=== PATIENT | female | born 1960 | race Caucasian/White ===

== ENCOUNTER 2022-06-15 10:56 | Outpatient (RCR) | payer BC, SELFPAY ==
--- NOTE | 2022-06-08 15:47 | ONC.NURNOTE ---
Authorization: User: Ceci Bacon Gurpreet Date: 03/14/22 10:17 Type: Eligibility Determination Note... Request received from [facility] for prior authorization of Prolia [id number]. Patient carries BC as primary insurance. Per [employer] no prior authorization is required for Prolia. Services are based on medical necessity. [id number]
[2022-06-15 11:55] LABS: Chloride* 102 mmol/L (96-114); Potassium* 4.2 mmol/L (3.6-5.1); Sodium* 139 mmol/L (135-149)
[2022-06-15 11:58] LABS: Creatinine* 0.6 mg/dL (0.5-1.5); Estimated Glomerular Filt Rate 103 ml/min
[2022-06-15 11:59] LABS: Blood Urea Nitrogen* 9 mg/dL (7-30); Calcium* 9.4 mg/dL (8.4-10.6); Carbon Dioxide* 29 mmol/L (20-32); Glucose* 121 mg/dL (60-115)
[2022-06-15] MEDS: DENOSUMAB 60 MG/ML SYRINGE SUBCUT (12:18)
== END 2022-12-12 23:59 | disposition home or self-care (01) ==
LOC: CCIC 10:56
PROVIDERS: PCP Internal Medicine; Referring Provider Internal Medicine; Visit Provider Internal Medicine Hematology & Oncology
DX: D05.11 Intraductal carcinoma in situ of right breast (principal); M85.80 Other specified disorders of bone density and structure, unspecified site
CPT/HCPCS: 36415; 80048; 96372; 99212; 99213; 99214; J0897

== ENCOUNTER 2022-07-19 14:44 | Outpatient (CLI) | payer BC, SELFPAY ==
[2022-07-19 12:15] LABS: Albumin* 4.8 g/dL (3.3-5.0)
[2022-07-19 12:16] LABS: Chloride* 101 mmol/L (96-114); Potassium* 4.2 mmol/L (3.6-5.1); Sodium* 137 mmol/L (135-149)
[2022-07-19 12:17] LABS: Creatinine Urine 189.1 mg/dL
[2022-07-19 12:18] LABS: Alkaline Phosphatase* 93 U/L (40-150); Aspartate Amino Transferase* 47 U/L (12-35); Bilirubin Total* 0.4 mg/dL (0.1-1.5); Blood Urea Nitrogen* 11 mg/dL (7-30); Carbon Dioxide* 26 mmol/L (20-32); Cholesterol* 213 mg/dL (90-199); Creatinine* 0.5 mg/dL (0.5-1.5); Estimated Glomerular Filt Rate 108 ml/min; Glucose* 121 mg/dL (60-115); Total Protein* 7.5 g/dL (6.0-8.3)
[2022-07-19 12:19] LABS: Alanine Aminotransferase* 38 U/L (4-35); Calcium* 8.8 mg/dL (8.4-10.6); HDL Cholesterol* 63 mg/dL (>=50); LDL Cholesterol Calculated 113 mg/dL (<100); Magnesium* 2.2 mg/dL (1.5-2.6); Triglycerides* 187 mg/dL (40-149)
[2022-07-19 12:21] LABS: Microalbumin Creatinine Ratio 10 mg/g (0-30); Microalbumin Urine 3 mg/dL
[2022-07-19 13:05] LABS: Vitamin B12* 610 pg/mL (243-894)
[2022-07-19 14:49] LABS: Ferritin* 9.5 ng/mL (11.1-264.0)
[2022-07-21 05:16] LABS: Folate, RBC 750 ng/mL (>=366); Hematocrit (client supplied) 41.3 %
[2022-07-21 08:56] LABS: Vitamin A (Retinol) 0.76 mg/L (0.30-1.20)
[2022-07-21 23:58] LABS: Copper, Serum/Plasma 138.9 ug/dL (80.0-155.0); Zinc, Serum/Plasma 83.3 ug/dL (60.0-120.0)
[2022-07-22 10:35] LABS: Vitamin K1 0.77 nmol/L (0.22-4.88)
== END 2022-07-19 14:45 | disposition home or self-care (01) ==
PROVIDERS: PCP Internal Medicine; Visit Provider Internal Medicine
DX: Z98.84 Bariatric surgery status (principal); E03.9 Hypothyroidism, unspecified; E78.5 Hyperlipidemia, unspecified; E13.9 Other specified diabetes mellitus without complications
CPT/HCPCS: 80053; 80061; 82043; 82525; 82570; 82607; 82728; 82747; 83735; 84443; 84446; 84590; 84597; 84630

== ENCOUNTER 2022-10-24 13:13 | Outpatient (CLI) | payer BC, SELFPAY ==
[2022-10-24 15:16] LABS: Cholesterol* 202 mg/dL (90-199); HDL Cholesterol* 72 mg/dL (>=50); LDL Cholesterol Calculated 90 mg/dL (<100); Triglycerides* 199 mg/dL (40-149)
== END 2022-10-24 13:14 | disposition home or self-care (01) ==
PROVIDERS: PCP Internal Medicine; Visit Provider Internal Medicine
DX: E78.5 Hyperlipidemia, unspecified (principal)
CPT/HCPCS: 80061

== ENCOUNTER 2022-12-27 10:33 | Outpatient (RCR) | payer BC, SELFPAY ==
--- NOTE | 2022-12-20 08:19 | ONC.NURNOTE ---
Pt called to reschedule prolia appt due to needing to attend a . Pt rescheduled for 12/28/22.
[2022-12-27 11:00] VITALS: BP 145/74; PULSE 74; RESP 16; TEMP 36.1; O2SAT 98
[2022-12-27 11:23] LABS: Chloride* 103 mmol/L (96-114); Potassium* 4.2 mmol/L (3.6-5.1); Sodium* 140 mmol/L (135-149)
[2022-12-27 11:26] LABS: Blood Urea Nitrogen* 11 mg/dL (7-30); Carbon Dioxide* 30 mmol/L (20-32); Creatinine* 0.6 mg/dL (0.5-1.5); Estimated Glomerular Filt Rate 103 ml/min
[2022-12-27 11:27] LABS: Calcium* 9.2 mg/dL (8.4-10.6); Glucose* 150 mg/dL (60-115)
[2022-12-27] MEDS: DENOSUMAB 60 MG/ML SYRINGE SUBCUT (11:58)
--- NOTE | 2023-03-06 10:02 | URNOTE ---
Received request for Mango ([id number]). Per Jany at [facility], prior auth is not required. Call ref #[id number]
--- NOTE | 2023-05-10 10:14 | URNOTE ---
Request received for authorization for Denosumab (Prolia) ([id number]). Prior authorization is approved per [employer] (Ref# [id number]) as patient carries [employer], approval is for Denosmab from 06/05/2023 to 06/04/2024.
--- NOTE | 2023-05-11 15:08 | PC.NURSE ---
Addendum entered by Zoey Robledo RN 05/17/23 13:56: Discussed case with Dr. Russo and MD does not feel that pt needs Prolia at this point. RN called Raven with this update and encouraged pt to call back to schedule her annual follow-up in June,. She verbalized understanding and will do so. Original Note: Called pt to inquire about previous dental clearance as she is due for Prolia in June 2023. Pt asked whether or not she needs to continue with Prolia as she is no longer taking Arimidex. Raven states that when she went to refill her Arimidex in January 2023, it is her understanding that the refill was denied by the provider. Pt states that her 5 years of Arimidex was up in April 2023. Pt last saw Dr. Russo in June 2022 and is due for follow up in June 2023. Will inquire with provider and follow up with Raven before scheduling.
== END 2023-06-25 23:59 | disposition home or self-care (01) ==
LOC: CCIC 10:33
PROVIDERS: PCP Internal Medicine; Referring Provider Internal Medicine; Visit Provider Internal Medicine Hematology & Oncology
DX: D05.11 Intraductal carcinoma in situ of right breast (principal); Z17.0 Estrogen receptor positive status [ER+]; Z79.811 Long term (current) use of aromatase inhibitors; M85.80 Other specified disorders of bone density and structure, unspecified site
CPT/HCPCS: 36415; 80048; 96372; J0897

== ENCOUNTER 2023-07-24 11:00 | Outpatient (CLI) | payer BC, SELFPAY | END 2023-07-24 11:01 | disposition home or self-care (01) | LOC: NFLDREF 07-25 08:33 | PROVIDERS: PCP Internal Medicine; Referring Provider Internal Medicine; Visit Provider Internal Medicine | DX: E11.9 Type 2 diabetes mellitus without complications (principal); E03.9 Hypothyroidism, unspecified; E78.5 Hyperlipidemia, unspecified; Z98.84 Bariatric surgery status | CPT/HCPCS: 80053; 80061; 82043; 82306; 82525; 82570; 82607; 82728; 82747; 83735; 84443; 84446; 84590; 84597; 84630 ==

== ENCOUNTER 2023-08-13 11:01 | Outpatient (RCR) | payer BC, SELFPAY | END 2024-02-09 23:59 | disposition home or self-care (01) | LOC: CCIC 11:01 | PROVIDERS: PCP Internal Medicine; Referring Provider Internal Medicine; Visit Provider Physician Assistant | DX: D05.11 Intraductal carcinoma in situ of right breast (principal); Z17.0 Estrogen receptor positive status [ER+]; M85.80 Other specified disorders of bone density and structure, unspecified site; R22.2 Localized swelling, mass and lump, trunk | CPT/HCPCS: 99212; 99214; 99215 ==

== ENCOUNTER 2023-11-01 08:01 | Outpatient (CLI) | payer BC, SELFPAY ==
--- NOTE | 2023-11-01 08:45 | CRLHL7_ITS ---
For Patients: As a result of the Cures Act, medical imaging exams and procedure reports are released immediately into your electronic medical record. You may view this report before your referring provider. If you have questions, please contact your health care provider. RIGHT DIAGNOSTIC MAMMOGRAM WITH COMPUTER-AIDED DETECTION AND TOMOSYNTHESIS AND RIGHT BREAST ULTRASOUND CLINICAL HISTORY: RIGHT breast lump. COMPARISON: 06/28/2023, 06/27/2022, 06/21/2021. TECHNIQUE: Digital RIGHT mammogram in two projections with computer-aided detection and tomosynthesis. Real-time ultrasound imaging of RIGHT breast with imaging documentation. BREAST COMPOSITION: There are scattered areas of fibroglandular density. FINDINGS: 3D CC/MLO RIGHT breast mammogram images submitted. Posttreatment changes noted. No suspicious masses or architectural distortion. Benign calcifications are present. Targeted RIGHT breast ultrasound performed in the area of concern. A sebaceous cyst is present measuring 4 x 2 x 3 mm within the medial chest wall with a tract to the skin noted. No suspicious findings. IMPRESSION: Benign sebaceous cyst measuring 4 mm. No evidence of malignancy. RECOMMENDATIONS: Clinical follow-up. Routine screening mammography. BI-RADS Category 2: Benign. Results and recommendations discussed with the patient. A lay language report of this examination will be provided to the patient. Dictated by Montrell Clarke MD @ 11/01/2023 9:46:09 AM CRL:[email or web address] RD/Dictated by: Montrell Clarke MD @ 11/01/2023 9:46:00 AM (Electronically Signed)
--- NOTE | 2023-11-01 09:15 | CRLHL7_ITS ---
For Patients: As a result of the Century Cures Act, medical imaging exams and procedure reports are released immediately into your electronic medical record. You may view this report before your referring provider. If you have questions, please contact your health care provider. PLEASE SEE RIGHT DIAGNOSTIC MAMMOGRAM OF SAME DAY FOR COMBINED REPORT. [email or web address]:[email or web address] RD/Dictated by: Montrell Clarke MD @ 11/01/2023 9:47:00 AM (Electronically Signed)
== END 2023-11-01 08:02 | disposition home or self-care (01) ==
LOC: MAMMO 08:02
PROVIDERS: PCP Internal Medicine; Visit Provider Physician Assistant
DX: N63.10 Unspecified lump in the right breast, unspecified quadrant (principal); N60.81 Other benign mammary dysplasias of right breast; D05.11 Intraductal carcinoma in situ of right breast; R22.9 Localized swelling, mass and lump, unspecified
CPT/HCPCS: 76642; 77065; G0279

== ENCOUNTER 2024-01-10 07:57 | Outpatient (CLI) | payer BC, SELFPAY ==
--- NOTE | 2024-01-10 08:41 | W.ANESCHARGE ---
Anesthesia Charges Start Date/Time Anesthesia Start Date: 01/10/24 Anesthesia Start Time: 09:00 Stop Date/Time Anesthesia Stop Date: 01/10/24 Anesthesia Stop Time: 09:35
--- NOTE | 2024-01-10 09:45 | W.ANESCHARGE ---
Anesthesia Charges Start Date/Time Anesthesia Start Date: 01/10/24 Anesthesia Start Time: 09:00 Stop Date/Time Anesthesia Stop Date: 01/10/24 Anesthesia Stop Time: 09:35
== END 2024-01-10 07:58 | disposition home or self-care (01) ==
LOC: OP CLINIC 07:58
PROVIDERS: PCP Internal Medicine; Visit Provider Surgery
DX: Z12.11 Encounter for screening for malignant neoplasm of colon (principal); K63.5 Polyp of colon
CPT/HCPCS: 00811; 45385; 88305; J2704

== ENCOUNTER 2024-06-30 12:42 | Outpatient (CLI) | payer BC, SELFPAY ==
--- NOTE | 2024-06-30 13:00 | CRLHL7_ITS ---
For Patients: As a result of the Cures Act, medical imaging exams and procedure reports are released immediately into your electronic medical record. You may view this report before your referring provider. If you have questions, please contact your health care provider. BILATERAL SCREENING MAMMOGRAM WITH COMPUTER-AIDED DETECTION AND TOMOSYNTHESIS TECHNIQUE: CC and MLO views were obtained. These mammographic images have been obtained using full-field digital technique. These mammographic images were interpreted with the benefit of computer-aided detection. Breast Tomosynthesis was used in this interpretation. COMPARISON FILM: 06/28/23, 06/27/22, 06/21/21. FINDINGS: There are scattered areas of fibroglandular density IMPRESSION: There is no radiographic evidence for malignancy. ASSESSMENT: BI-RADS Category 1: Negative RECOMMENDATION: Routine screening mammogram in 1 year. A lay language report of this examination will be provided to the patient. Montrell Clarke M.D. Diagnostic Radiologist [email or web address] BEVERLY/ralph Transcribed: 3:19 p.mShawn rosas/Dictated by: Montrell Clarke MD @ 07/02/2024 10:54:00 AM (Electronically Signed)
== END 2024-06-30 12:43 | disposition home or self-care (01) ==
LOC: MAMMO 12:43
PROVIDERS: PCP Internal Medicine; Visit Provider Internal Medicine
DX: Z12.31 Encounter for screening mammogram for malignant neoplasm of breast (principal)
CPT/HCPCS: 77063; 77067

== ENCOUNTER 2024-07-30 10:13 | Outpatient (CLI) | payer BC, SELFPAY | END 2024-07-30 10:14 | disposition home or self-care (01) | LOC: NFLDREF 08-03 06:14 | PROVIDERS: PCP Internal Medicine; Referring Provider Internal Medicine; Visit Provider Internal Medicine | DX: E78.5 Hyperlipidemia, unspecified (principal); E11.9 Type 2 diabetes mellitus without complications; E03.9 Hypothyroidism, unspecified | CPT/HCPCS: 80061; 82043; 82306; 82570; 84443 ==

== ENCOUNTER 2024-08-04 10:35 | Outpatient (CLI) | payer BC, SELFPAY ==
--- OUTSIDE RECORDS SUMMARY | 2024-08-06 14:27 | XMS_ITS | Clinical Summary ---
Author Organization [employer] [facility] Address [place], [place] [address] Care Team Providers Care Paste Up Copy Camera Operator Name Role Phone Stephanie Perry MD Primary Care Provider [phone] Clary Jha MD Unavailable Unavailab Delicia Colby MD Unavailable Zbigniew Hidalgo MD Unavailable [phone] Allergies Active Allergy Reactions Criticality Noted Date Comments Bupropion Intolerance-Can't Take 12/04/2007 Jittery Medications Medication Sig Dispensed Refills Start Date End Date Status ALPRAZOLAM 1 MG TAB take 1 tablet (1 mg) by oral route prior to each flight 6 0 11/10/2008 Active cholecalciferol (VITAMIN D) 1,000 unit capsule Take 1 capsule by mouth once daily. 0 02/21/2011 Active multivitamin-folic acid 0.4 mg (MULTIPLE VITAMIN) tablet Take 1 tablet by mouth once daily. 0 02/21/2011 Active atorvastatin (LIPITOR) 10 mg tabletIndications:Ot her and unspecified hyperlipidemia Take 1 tablet by mouth once daily. 90 tablet 3 02/21/2011 Active budesonide, 32 mcg each actuation, nasal (RHINOCORT AQUA) 32 mcg/Actuation nasal sprayIndications:Rou adolfo gynecological examination 1 [place] once daily. 1 Bottle 11 02/21/2011 Active citalopram (CELEXA) 40 mg tabletIndications:Pr emenstrual tension syndromes Take 1 tablet by mouth once daily. 90 tablet 3 02/21/2011 Active levothyroxine (SYNTHROID) 100 mcg tabletIndications:Un specified hypothyroidism Take 1 tablet by mouth once daily. Pt will call for refill 90 tablet 3 02/21/2011 Active calcium carbonate (CALCIUM 600) 600 mg calcium (1,500 mg) tablet Take 1 tablet by mouth 2 times daily with meals. 0 05/13/2018 Active cyanocobalamin (VITAMIN B12) 1,000 mcg/mL injection Inject 1 mL intramuscular every 4 weeks. 0 05/13/2018 Active LORazepam (ATIVAN) 0.5 mg tab Take 0.5 mg by mouth each time if needed for Anxiety. Active fluticasone (50 mcg per actuation) nasal solution (FLONASE) Inhale 2 Sprays in the nostril(s) once daily. Active anastrozole (ARIMIDEX) 1 mg tablet 3 10/18/2018 Active Active Problems Problem Noted Date Diagnosed Date Unspecified hypothyroidism 12/04/2007 Rosacea 12/04/2007 Dysthymic disorder 12/04/2007 Overview (12/04/2007): anxiety Other and unspecified hyperlipidemia 12/04/2007 Esophageal reflux 12/04/2007 Premenstrual tension syndromes 12/04/2007 Ductal carcinoma in situ (DCIS) of right breast Immunizations Name Administration Dates Next Due Influenza, IIV3 (Age >=3 years) 09/01/2008,09/11 Tdap 12/08/2008 Family History Medical History Relation Name Comments Diabetes Brother 1 type II, diagno sed age 36 Psychiatric illness Brother 2 second b rother with personality disorder, OCD Hyperlipidemia Father Cancer-breast Mother age 70. Partia l mastectomy in 2004 Hyperlipidemia Mother Other Mother atrial fibrilla tion Stroke Mother TIA Hyperlipidemia Paternal Grandfather Cancer Paternal Grandmother uterine Cancer-colon No Family History Cancer-ovarian No Family History Relation Name Status Comments Brother 1 Brother 2 Father Alive Mother Paternal Grandfather Paternal Grandmother Social History Tobacco Use Types Packs/Day Years Used Date Smoking Tobacco: Never Smokeless Tobacco: Never Alcohol Use Standard Drinks/Week Comments Yes 5 (1 standard drink = 0.6 oz pur e alcohol) once or twice per week Sex and Gender Information Value Date Recorded Sex Assigned at Not on file Gender Identity Not on file Sexual Orientation Not on file Obstetrics History Para Term AB IAB SAB Ectopic Multiple Livin g Live Births 4 2 2 2 2 2 Date Outcome GA Total Labor Labor/2nd/3rd Weight Sex Type Anes PTL Farhana A1 A5 Name Clin SAB SAB Term Term Last Filed Vital Signs Vital Sign Reading Time Taken Comments Blood Pressure 136/84 06/27/2022 11:00 AM CDT Pulse 81 06/27/2022 11:00 AM CDT Temperature 36.5 ??C (97.7 ??F) 06/27/2022 11:00 AM C DT Respiratory Rate 16 06/27/2022 11:00 AM CDT Oxygen Saturation 100% 06/07/2018 4:15 PM CDT Inhaled Oxygen Concentration - - Weight 93.9 kg (207 lb) 06/27/2022 11:00 AM CDT Height 162.6 cm (5' 4) 06/27/2022 11:00 AM CDT Body Mass Index 35.53 06/27/2022 11:00 AM CDT Plan of Treatment Health Maintenance Due Date Last Done Comments Depression screening for age 12+ 1974 HIV for age 15-65 1977 Hepatitis C screening for age 18-79 1980 Colonoscopy through age 75 2007 Zoster (shingles) series for age 50+ (1 of 2) 2012 Lipids for age 45-75 02/22/2016 02/21/2011, 02/09/2010, 03/03/2009, Additional history exists Tetanus booster 12/08/2018 12/08/2008, 12/08/2008 BMI (ht and wt on same day) for age 18+ 06/27/2023 06/27/2022, 06/21/2021, 06/01/2020, Additional history exists Mammogram for age 45-75 06/28/2024 06/28/20 23, 06/27/2022, 06/21/2021, Additional history exists COVID-19 vaccine series ( season) 2024 08/21/2022, 09/21/2021, 02/18/2021, Additional history exists Influenza for age 50-64 07/06/2024 09/01/2008, 09/11 Pap test for age 21-65 07/31/2026 3, 07/31/2023, 01/14/2018, Additional history exists Tdap Completed 12/08/2008 Pneumococcal series for age 6-64 Aged Out No longer eligible based on patient's age to complete this topic Procedures Procedure Name Priority Date/Time Associated Diagnosis Comments HPV HIGH RISK Routine 07/31/2023 1:30 PM CDT XR MAMMO REJI BILAT SCREEN Routine 06/28/2023 11:42 AM CDT Visit for screening mammogram LIPID PANEL Routine 02/21/2011 11:36 AM CDT Other and unspecified hyperlipidemia from Last 3 Months or Most Recently Relevant to Health Maintenance Results * HPV HIGH RISK (07/31/2023 1:30 PM CDT) TYPE 16 Negative Negative 08/03/2023 5:10 PM CDT [facility] TYPE 18 Negative Negative 08/03/2023 5:10 PM CDT [facility] OTHER HIGH RISK TYPES Negative Negative 08/03/2023 5:10 PM CDT [facility] Other (Cervical) 07/31/2023 1:30 PM CDT 08/01/2023 6:13 PM CDT Narrative [facility] - 08/03/2023 5:10 PM CDT HPV types 16, 18, 31, 33, 35, 39, 45, 51, 52, 56, 58, 59, 66 and 68 DNA were undetectable or below the pre-set threshold. Methodology: Mac Edith 4800 HPV Test Stephanie Perry MD MICROBIOLOGY [facility] [address] [place] [address], * XR MAMMO REJI BILAT SCREEN (06/28/2023 11:42 AM CDT) Anatomical Region Laterality Modality BREASTS, Breast Left, Breast Right Bilateral Mammography Impressions 06/28/2023 12:06 PM CDT ??There is no radiographic evidence for malignancy. ??Recommend annual mammograms. MAMMOGRAM ASSESSMENT: ??ACR 1 Negative PATIENTS: You will also receive a letter with your examination results in an easy to read format. ??If you have questions about your results, please contact your referring provider. Narrative 06/28/2023 12:06 PM CDT For Patients: As a result of the Cures Act, medical imaging exams and procedure reports are released immediately into your electronic medical record. You may view this report before your referring provider. If you have questions, please contact your health care provider. XR MAMMO REJI BILAT SCREEN [[id number]] CLINICAL HISTORY: ??This is an asymptomatic 62 y.o. patient. INDICATION FOR EXAM: Mammogram Screening. TECHNIQUE: CC & MLO views were obtained. ??This study was evaluated with the assistance of Computer-Aided Detection. Breast Tomosynthesis was used in interpretation. COMPARISON FILM: Yes 06/27/22 [facility] 06/21/21 [facility] FINDINGS: ??The breasts have scattered areas of fibroglandular density. There are no dominant masses, suspicious micro calcifications or areas of architectural distortion. Stephanie Perry MD MAMMO * LIPID PANEL (02/21/2011 11:36 AM CDT) CHOLESTEROL,TOTAL 163 110 - 199 mg/dL [facility] TRIGLYCERIDES 141 <150 mg/dL [facility] HDL CHOLESTEROL 49 >40 mg/dL [facility] CHOL/HDL RATIO 3.33 <4.51 [facility] LDL CHOLESTEROL 86 <131 mg/dL [facility] PATIENT STATUS Fasting [facility] Blood specimen (specimen) BLOOD SPECIMEN / Unknown 02/21/2011 11:36 AM CDT 02/21/2011 11:25 AM CDT Kerri Park NP CHEMISTRY [facility] [address] [place] [address] from Last 3 Months or Most Recently Relevant to Health Maintenance Advance Directives * Full Code (Latest Code Status on File) Date Activated Date Inactivated Comments 06/07/2018 11:56 AM 06/07/2018 7:43 PM * Full Code Date Activated Date Inactivated Comments 06/07/2018 11:56 AM 06/07/2018 11:56 AM Care Teams Paste Up Copy Camera Operator Relationship Specialty Start Date End Date Stephanie Perry MD [address] [place] [address] PCP - General Internal Medicine 05/06/18 Clary Jha MD [address] [place] [address] Surgery - General 05/13/18 Delicia Fuentes MD [address] [place] [address] Oncology Family Practice 06/05/18 Zbigniew Hidalgo MD [address] [place] [address] Internal Medicine 06/12/18
== END 2024-08-04 10:36 | disposition home or self-care (01) ==
LOC: NFLDREF 08-06 14:25
PROVIDERS: PCP Internal Medicine; Referring Provider Internal Medicine; Visit Provider Internal Medicine
DX: Z98.84 Bariatric surgery status (principal)
CPT/HCPCS: 80053; 82525; 82607; 82728; 83540; 83550; 83735; 84446; 84590; 84597; 84630

== ENCOUNTER 2024-09-24 13:13 | Outpatient (CLI) | payer BC, SELFPAY ==
--- OUTSIDE RECORDS SUMMARY | 2024-09-24 13:15 | XMS_ITS | Clinical Summary ---
Author Organization [employer] [facility] Address [place], [place] [address] Care Team Providers Care Paperboard Machine Operator Name Role Phone Stephanie Perry MD Primary Care Provider [phone] Clary Jha MD Unavailable Unavailab Delicia Colby MD Unavailable [phone] Zbigniew Hidalgo MD Unavailable [phone] Allergies Active Allergy Reactions Criticality Noted Date [...] mcg/Actuation nasal sprayIndications:Rou adolfo gynecological examination 1 [place] once daily. 1 Bottle 11 02/21/2011 Active [...] 81 06/27/2022 11:00 AM CDT Temperature 36.5 C (97.7 F) 06/27/2022 11:00 AM CDT Respiratory Rate 16 06/27/2022 11:00 AM CDT [...] 09/11 Pap test for age 21-65 07/31/2026 , 07/31/2023, 01/14/2018, Additional history exists Tdap Completed [...] 16 Negative Negative 08/03/2023 5:10 PM CDT [facility] TYPE 18 Negative Negative 08/03/2023 5:[address] [facility] OTHER HIGH RISK TYPES Negative Negative 08/03/2023 5:[address] [facility] Other (Cervical) 07/31/2023 1:30 PM CDT 08/01/2023 6:13 PM CDT Narrative [facility] - 08/03/2023 5:10 PM CDT HPV types 16, 18, 31, 33, 35, 39, 45, 51, 52, 56, 58, 59, 66 and 68 DNA were undetectable or below the pre-set threshold. Methodology: Mac Edith 4800 HPV Test Stephanie Perry MD [facility] [address] [place] [address], * XR MAMMO REJI BILAT SCREEN (06/28/2023 11:42 AM CDT) Anatomical Region Laterality Modality BREASTS, Breast Left, Breast Right Bilateral Mammography Impressions 06/28/2023 12:06 PM CDT There is no radiographic evidence for malignancy. Recommend annual mammograms. MAMMOGRAM ASSESSMENT: ACR 1 Negative PATIENTS: You will also receive a letter with your examination results in an easy to read format. If you have questions about your results, please contact your referring provider. Narrative 06/28/2023 12:06 PM CDT For Patients: As a result of the Cures Act, medical imaging exams and procedure reports are released immediately into your electronic medical record. You may view this report before your referring provider. If you have questions, please contact your health care provider. XR MAMMO REJI BILAT SCREEN [[id number]] CLINICAL HISTORY: This is an asymptomatic 62 y.o. patient. INDICATION FOR EXAM: Mammogram Screening. TECHNIQUE: CC & MLO views were obtained. This study was evaluated with the assistance of Computer-Aided Detection. Breast Tomosynthesis was used in interpretation. COMPARISON FILM: Yes 06/27/22 [facility] 06/21/21 [facility] FINDINGS: The breasts have scattered areas of fibroglandular density. There are no dominant masses, suspicious micro calcifications or areas of architectural distortion. Stephanie Perry MD MAMMO * LIPID PANEL (02/21/2011 11:36 AM CDT) CHOLESTEROL,TOTAL 163 110 - 199 mg/dL [facility] TRIGLYCERIDES 141 <150 mg/dL [facility] HDL CHOLESTEROL 49 >40 mg/dL [facility] CHOL/HDL RATIO 3.[address] [facility] LDL CHOLESTEROL 86 <131 mg/dL [facility] PATIENT STATUS Fasting [facility] Blood specimen (specimen) BLOOD SPECIMEN / Unknown 02/21/2011 11:36 AM CDT 02/21/2011 11:25 AM CDT Kerri Park NP CHEMISTRY [facility] [address] [place] [address] from Last 3 Months or Most Recently Relevant to Health Maintenance Advance Directives * Full Code (Latest Code Status on File) Date Activated Date Inactivated Comments 06/07/2018 11:56 AM 06/07/2018 7:43 PM * Full Code Date Activated Date Inactivated Comments 06/07/2018 11:56 AM 06/07/2018 11:56 AM Care Teams Paperboard Machine Operator Relationship Specialty Start Date End Date Stephanie Perry MD [address] [place] [address] PCP - General Internal Medicine 05/06/18 Clary Jha MD [address] [place] [address] Surgery - General 05/13/18 Delicia Fuentes MD [address] [place] [address] Oncology Family Practice 06/05/18 Zbigniew Hidalgo MD [address] [place] [address] Internal Medicine 06/12/18
--- NOTE | 2024-09-24 13:30 | CRLHL7_ITS ---
For Patients: As a result of the Century Cures Act, medical imaging exams and procedure reports are released immediately into your electronic medical record. You may view this report before your referring provider. If you have questions, please contact your health care provider. DXA BONE MINERAL DENSITY STUDY Current height (in): 64.0. Weight (lb): 188.0. Menopause age: 52. Ethnicity: White. 1. Have you had a previous hip or vertebral fracture? No. 2. Have you had any fractures during your adult life which did not result from significant trauma (e.g., auto accident)? No. 3. Did either of your parents have a hip fracture? Yes. 4. Do you smoke? No. 5. Have you ever taken Glucocorticoids? No. 6. Do you have rheumatoid arthritis? No. 7. Do you have secondary osteoporosis? No. 8. Do you drink 3 or more alcoholic drinks per day? No. 9. Are you being treated for osteoporosis? No. 10. Have you ever taken any of the following medications: Actonel, Evista, Fosamax, Miacalcin, Reclast, Boniva, Forteo, HRT (i.e. estrogen/hormone therapy), Protelos, Prolia, Vitamin D, Calcium, other ??? please specify. ANSWER: Yes, Vitamin D, Prolia, Calcium. 11. Do you have any of the following medical conditions: Anorexia or bulimia, asthma or emphysema, end stage renal disease, hyperparathyroidism, any seizure disorders, cancer, inflammatory bowel diseases, hysterectomy, other ??? please specify. ANSWER: Yes, Cancer. 12. What was your maximum height (inches)? 64. 13. Do you perform weight bearing exercise regularly? No. 14. Do you regularly consume dairy products? Yes. 15. Do you drink caffeinated beverages? Yes. If female: 16. At what age did your period start? 13. 17. Are you premenopausal? No. 18. How many full term pregnancies have you had? 2. 19. Have you ever missed your period for more than 6 months in a row (not including or menopause)? No. TECHNIQUE: Bone mineral density study was performed using the [employer]. FINDINGS: The results of the study expressed as bone mineral density (BMD) are as follows: Lumbar spine L1 to L4: BMD: 0.888 g/cm2. T-score: -1.4. Z-score: 0.1. Neck Left: BMD: 0.631 g/cm2. T-score: -2.0 . Z-score: -0.6. Right: BMD: 0.631 g/cm2. T-score: -2.0 . Z-score:-0.6. Total Left: BMD: 0.890 g/cm2. T-score: -0.4 . Z-score: 0.6. Right: BMD: 0.631 g/cm2. T-score: -0.9 . Z-score: 0.1. IMPRESSION: Osteopenia. *Comparison exams done prior to 04/2020 were performed on different unit, about.me. COMPARISON: Compared with scan of 01/04/2022, the bone mineral density has decreased by 1.9 percent at the spine and increased by 0.7 percent at the hip. ASHLEY MEEHAN M.D. Transcribed: [email or web address] JR/Dictated by: Ashley Meehan MD @ 09/25/2024 10:32:00 AM (Electronically Signed)
== END 2024-09-24 13:14 | disposition home or self-care (01) ==
LOC: RAD 13:14
PROVIDERS: PCP Internal Medicine; Visit Provider Internal Medicine
DX: M85.88 Other specified disorders of bone density and structure, other site (principal)
CPT/HCPCS: 77080

== ENCOUNTER 2024-10-07 11:25 | Outpatient (CLI) | payer BC, SELFPAY ==
--- OUTSIDE RECORDS SUMMARY | 2024-10-11 18:33 | XMS_ITS | Clinical Summary ---
Author Organization [facility] Address [place], [place] [address] Care Team Providers Care Spool Sorter Name Role Phone Stephanie Perry MD Primary Care Provider [phone] Clary Jha MD Unavailable Unavailab Delicia Cobly MD Unavailable [phone] Zbigniew Hidalgo MD Unavailable Allergies Active Allergy Reactions Criticality Noted Date Comments Bupropion Intolerance-Can't Take 12/04/2007 [facility] Medications ALPRAZOLAM 1 MG TAB take 1 tablet (1 mg) by oral route prior to each flight 6 0 11/10/19 09 Active cholecalciferol (VITAMIN D) 1,000 unit capsule Take 1 capsule by mouth once daily. 0 02/22/20 11 Active multivitamin-folic acid 0.4 mg (MULTIPLE VITAMIN) tablet Take 1 tablet by mouth once daily. 0 02/22/20 11 Active atorvastatin (LIPITOR) 10 mg tabletIndications: Other and unspecified hyperlipidemia Take 1 tablet by mouth once daily. 90 tablet 3 02/22/20 11 Active budesonide, 32 mcg each actuation, nasal (RHINOCORT AQUA) 32 mcg/Actuation nasal sprayIndications:R outine gynecological examination 1 Floyd once daily. 1 Bottle 11 02/22/20 11 Active citalopram (CELEXA) 40 mg tabletIndications: Premenstrual tension syndromes Take 1 tablet by mouth once daily. 90 tablet 3 02/22/20 11 Active levothyroxine (SYNTHROID) 100 mcg tabletIndications: Unspecified hypothyroidism Take 1 tablet by mouth once daily. Pt will call for refill 90 tablet 3 02/22/20 11 Active calcium carbonate (CALCIUM 600) 600 mg calcium (1,500 mg) tablet Take 1 tablet by mouth 2 times daily with meals. 0 05/13/20 18 Active cyanocobalamin (VITAMIN B12) 1,000 mcg/mL injection Inject 1 mL intramuscular every 4 weeks. 0 05/13/20 18 Active LORazepam (ATIVAN) 0.5 mg tab Take 0.5 mg by mouth each time if needed for Anxiety. Active fluticasone (50 mcg per actuation) nasal solution (FLONASE) Inhale 2 Sprays in the nostril(s) once daily. Active anastrozole (ARIMIDEX) 1 mg tablet 3 10/18/20 18 Active Active Problems Problem Noted Date Diagnosed [...] e alcohol) once or twice per week Comments No Sex and Gender Information Value Date Recorded Sex Assigned at Not on file Legal Sex Female 5:25 AM [employer] Gender Identity Not on file Sexual Orientation [...] history exists Mammogram for age 45-75 06/28/2024 06/28/20, 06/27/2022, 06/21/2021, Additional history exists COVID-19 vaccine [...] 16 Negative Negative 08/03/2023 5:10 PM CDT [facility] TYPE 18 Negative Negative 08/03/2023 5:10 PM CDT [facility] OTHER HIGH RISK TYPES Negative Negative 08/03/2023 5:10 PM CDT [facility] Other (Cervical) 07/31/2023 1:30 PM CDT 08/01/2023 6:13 PM CDT Narrative [facility] - 08/03/2023 5:10 PM CDT HPV types 16, 18, 31, 33, 35, 39, 45, 51, 52, 56, 58, 59, 66 and 68 DNA were undetectable or below the pre-set threshold. Methodology: Mac Edith 4800 HPV Test us Stephanie Perry MD MICROBIOLOGY Final Resu lt [facility] [address] [place] [address], [place] * XR MAMMO REJI BILAT SCREEN (06/28/2023 [...] For Patients: As a result of the Century Cures Act, medical imaging exams and procedure reports are released immediately into your electronic medical record. You may view this report before your referring provider. If you have questions, please contact your health care provider. XR MAMMO REJI BILAT SCREEN [[id number]] CLINICAL HISTORY: This is an asymptomatic 62 y.o. patient. INDICATION FOR EXAM: Mammogram Screening. TECHNIQUE: CC & MLO views were obtained. This study was evaluated with the assistance of Computer-Aided Detection. Breast Tomosynthesis was used in interpretation. COMPARISON FILM: Yes 06/27/22 [facility] 06/21/21 [facility] FINDINGS: The breasts have scattered areas of fibroglandular density. There are no dominant masses, suspicious micro calcifications or areas of architectural distortion. us Stephanie Perry MD MAMMO Final Resu lt * LIPID PANEL (02/21/2011 11:36 AM CDT) CHOLESTEROL,TOTAL 163 110 - 199 mg/dL [facility] TRIGLYCERIDES 141 <150 mg/dL [facility] HDL CHOLESTEROL 49 >40 mg/dL [facility] CHOL/HDL RATIO 3.33 <4.51 [facility] LDL CHOLESTEROL 86 <131 mg/dL [facility] PATIENT STATUS Fasting [facility] Blood specimen (specimen) BLOOD SPECIMEN / Unknown 02/21/2011 11:36 AM CDT 02/21/2011 11:25 AM CDT us Kerri Park NP CHEMISTRY F inal Result [facility] [address] [place] [address] from Last 3 Months or Most Recently Relevant to Health Maintenance Insurance [facility] Advance Directives * Full Code (Latest Code Status on File) Date Activated Date Inactivated Comments 06/07/2018 11:56 AM 06/07/2018 7:43 PM * Full Code Date Activated Date Inactivated Comments 06/07/2018 11:56 AM 06/07/2018 11:56 AM Care Teams Spool Sorter Relationship Specialty Start Date End Date Stephanie Perry MD [address] [place] [address] PCP - General Internal Medicine 05/06/18 Clary Jha MD [address] [place] [address] Surgery - General 05/13/18 Delicia Fuentes MD [address] [place] [address] Oncology Family Practice 06/05/18 Zbigniew Hidalgo MD [address] [place] [address] Internal Medicine 06/12/18
== END 2024-10-07 11:26 | disposition home or self-care (01) ==
LOC: NFLDREF 10-11 18:31
PROVIDERS: PCP Internal Medicine; Referring Provider Internal Medicine; Visit Provider Internal Medicine
DX: M85.80 Other specified disorders of bone density and structure, unspecified site (principal)
CPT/HCPCS: 82310; 82565

== ENCOUNTER 2025-01-19 11:30 | Outpatient (RCR) | payer BC, SELFPAY ==
--- NOTE | 2024-11-28 08:17 | ONC.NURNOTE ---
Punch Finisher called patient to schedule reclast infusion. She was reluctant to schedule following some reading she had done on the medication. Some questions were answered, but still had reservations. Patient will call her PCP to discuss and call us back in December following her trip if she plans to continue with infusion.
--- NOTE | 2024-12-24 11:51 | ONC.NURNOTE ---
Patient called to schedule her reclast. Order was from 10/07 and so was prior auth. Spoke with Utilization review who stated we do not need to repeat PA as her insurance does not require it.
[2025-01-07 11:22] LABS: Calcium* 9.4 mg/dL (8.4-10.6); Creatinine* 0.7 mg/dL (0.5-1.5); Estimated Glomerular Filt Rate 98 ml/min
--- NOTE | 2025-01-07 12:05 | ONC.NURNOTE ---
Pt here for 1st Reclast today; labs drawn. When reviewing pt education on Reclast, pt notes she is concerned about the side effects of osteonecrosis of the jaw and spontaneous hip fracture. She notes she has been on Prolia in the past and tolerated well. Reinforced pt's autonomy and encouraged to discuss further with PCP possibility of resuming Prolia. Pt verbalizes understanding and will reach out to PCP Dr. Perry.
[2025-01-19 11:39] VITALS: BP 129/80; PULSE 68; RESP 16; TEMP 36.2; O2SAT 98
[2025-01-19] MEDS: SODIUM CHLORIDE 0.9 % (FLUSH) 10 ML SYRINGE IVF (12:00)
== END 2025-07-06 23:59 | disposition home or self-care (01) ==
LOC: CCIC 11:30
PROVIDERS: PCP Internal Medicine; Referring Provider Internal Medicine; Visit Provider Clinical Nurse Specialist
DX: M81.0 Age-related osteoporosis without current pathological fracture (principal)
CPT/HCPCS: 36415; 82310; 82565; 96365; J3489; J7050

== ENCOUNTER 2025-07-03 13:01 | Outpatient (CLI) | payer BC, SELFPAY ==
--- NOTE | 2025-07-03 13:20 | CRLHL7_ITS ---
For Patients: As a result of the Century Cures Act, medical imaging exams and procedure reports are released immediately into your electronic medical record. You may view this report before your referring provider. If you have questions, please contact your health care provider. INDICATION: BILATERAL SCREENING MAMMOGRAM, ASYMPTOMATIC 64 Y/O FEMALE COMPARISON: 06/30/2024, 06/28/2023, 06/27/2022 TECHNIQUE: Digital mammogram in CC and MLO projections including computer-aided detection (CAD) and tomosynthesis. BREAST COMPOSITION: There are scattered areas of fibroglandular density. FINDINGS: No suspicious findings. ASSESSMENT: BI-RADS 1 Negative RECOMMENDATION: Annual screening mammogram. A lay language report of this examination will be provided to the patient. Dictated by: Montrell Clarke MD @ 07/07/2025 08:29:54 (Electronically Signed)
== END 2025-07-03 13:02 | disposition home or self-care (01) ==
LOC: MAMMO 13:01
PROVIDERS: PCP Internal Medicine; Visit Provider Internal Medicine
DX: Z12.31 Encounter for screening mammogram for malignant neoplasm of breast (principal)
CPT/HCPCS: 77063; 77067

== ENCOUNTER 2025-07-30 09:27 | Outpatient (CLI) | payer BC, SELFPAY | END 2025-07-30 09:28 | disposition home or self-care (01) | LOC: NFLDREF 08-03 04:11 | PROVIDERS: PCP Internal Medicine; Referring Provider Internal Medicine; Visit Provider Internal Medicine | DX: E78.5 Hyperlipidemia, unspecified (principal); E11.9 Type 2 diabetes mellitus without complications; E03.9 Hypothyroidism, unspecified; Z98.84 Bariatric surgery status | CPT/HCPCS: 80053; 80061; 82043; 82306; 82525; 82570; 82607; 82728; 83540; 83550; 83735; 84443; 84446; 84590; 84597; 84630 ==